=== PATIENT | male | born 1975 | race Caucasian/White ===

== ENCOUNTER → 2016-05-15 | Outpatient (CLI) | payer BC ==
[~2016-05-15] VITALS: Ht 180.3 cm; Wt 98.8 kg
[~2016-05-15] MED LIST: ALBUTEROL SULFATE 2.5 MG/0.5 ML INH NEB SOLN INH SCH; D5W 1,000 ML IV SCH; LIDOCAINE 1% MDV 20ML VIAL As Ordered ONE; LIDOCAINE 4% INJ 5 ML AMP As Ordered ONE; LIDOCAINE 4% INJ 5 ML AMP NEB SCH; LIDOCAINE VISCOUS 2% SOLN 15ML UDC As Ordered ONE; MIDAZOLAM INJ 2 MG/2 ML VIAL (J2250) As Ordered ONE; MULT1TAB10 PO; XALK250C PO; fentaNYL 100 MCG/2 ML INJECTION (J3010) As Ordered ONE
[2016-05-15 09:40] VITALS: BP 133/70
--- NOTE | 2016-05-15 10:05 | RO ---
DATE OF PROCEDURE: 05/15/2016 PREPROCEDURE DIAGNOSIS: Hemoptysis. POSTPROCEDURE DIAGNOSIS: Hemoptysis from radiation changes. PROCEDURE: Bronchoscopy. No samples taken. SURGEON: Dr. Herbert Almazan. IDENTIFICATION OFFICER: None ANESTHESIA: 4 mg of IV Versed, 50 mcg IV fentanyl and 360 mg of topical lidocaine. Consent reviewed and signed in the chart. DESCRIPTION OF PROCEDURE: After consent was reviewed with the patient in detail in the preoperative area, he was brought back to the procedure suite #1. He was placed in the supine position. Anesthetization of his airway was then performed with 4% inhaled Xylocaine. This was followed by direct application of 4% lidocaine to the posterior pharynx. The right nares was prepped with lidocaine jelly. Time-out was performed with two patient identifiers identifying correct site, correct procedure. After adequate suppression of gag reflex, conscious sedation was initiated. The P180 bronchoscope was then inserted through the right nares. The posterior nasopharynx was normal. The oropharynx was normal. The vocal cords approximated normally. There were no lesions. The vocal cords were then anesthetized with 1% lidocaine. The bronchoscope was then inserted into the airway and the airways were anesthetized with 1% lidocaine. The trachea was midline. Cony was sharp. Right and left mainstem bronchus were normal. There were obvious radiation changes to the right upper lobe, right middle lobe and bronchus intermedius. There was friability without endobronchial lesion. After inspection of RB 1 through 10, there was no endobronchial lesion. The left mainstem bronchus was then entered and LB 1 through 10 was inspected without evidence of endobronchial lesion. After assurance of hemostasis, the bronchoscope was removed. There were no complications. SUREKHAD
== END ==
LOC: M OPP 07:15
PROVIDERS: ATTEND Internal Medicine Pulmonary Disease
DX: R04.2 Hemoptysis (principal); Z85.118 Personal history of other malignant neoplasm of bronchus and lung; Z85.830 Personal history of malignant neoplasm of bone; Z85.841 Personal history of malignant neoplasm of brain; Z92.3 Personal history of irradiation; K21.9 Gastro-esophageal reflux disease without esophagitis; Z79.899 Other long term (current) drug therapy
CPT/HCPCS: 31622; 94640; J2250; J3010